=== PATIENT | female | born 1960 | race Caucasian/White ===

== ENCOUNTER 2019-03-12 22:11 | Emergency (ER) | payer BC ==
[~2019-03-12] VITALS: Ht 175.3 cm; Wt 124.7 kg
[~2019-03-12 22:11] MED LIST: ASPI81EC PO; CETI10 PO; CYCL10 PO; DOCSEN PO; DULO60 PO; HYDACE5 PO; LISI20 PO; MULVITB&C PO; MULVITMINF PO; OMEP20ER PO; TRAZ50 PO
[2019-03-12 22:55] LABS: BASOPHILS ABSOLUTE AUTO 0.06 K/mm3 (0.00-0.23); BASOPHILS PERCENT AUTO 1 % (0-2); EOSINOPHILS ABSOLUTE AUTO 0.01 K/mm3 (0.00-0.68); EOSINOPHILS PERCENT AUTO 0 % (0-6); Hematocrit 42.1 % (33.0-51.0); Hemoglobin 13.7 g/dL (11.5-16.0); IMMATURE GRAN ABSOLUTE AUTO 0.07 K/mm3 (0.00-0.10); IMMATURE GRAN PERCENT AUTO 1 % (0-1); LYMPHOCYTES ABSOLUTE AUTO 4.05 K/mm3 (0.84-5.20); LYMPHOCYTES PERCENT AUTO 42 % (21-46); MONOCYTES ABSOLUTE AUTO 0.72 K/mm3 (0.16-1.47); MONOCYTES PERCENT AUTO 8 % (4-13); Mean Corpuscular HGB 27.5 pg (26.0-34.0); Mean Corpuscular HGB Conc 32.5 g/dL (31.5-36.5); Mean Corpuscular Volume 84 fL (80-100); NEUTROPHILS ABSOLUTE AUTO 4.68 K/mm3 (1.96-9.15); NEUTROPHILS PERCENT AUTO 49 % (41-73); Platelet Count 180 K/mm3 (150-400); RDW Coefficient Variation 13.6 % (11.7-14.2); RDW Standard Deviation 41.9 fL (35.1-46.3); Red Blood Cell Count 4.99 M/mm3 (3.80-5.20); White Blood Cell Count 9.59 K/mm3 (4.00-11.30)
[2019-03-12 23:02] LABS: Alanine Aminotransfer (ALT/SGP 34 U/L (12-78); Albumin, Blood 3.7 g/dL (3.4-5.0); Albumin/Globulin Ratio 1.1 (0.8-1.8); Alk Phos 89 U/L (50-136); Anion Gap 8 mmol/L (6-16); Aspartate Aminotrans (AST/SGOT 26 U/L (12-37); Bilirubin, Total 0.4 mg/dL (0.1-1.0); Blood Urea Nitrogen 19 mg/dL (8-24); Bun/Creatinine Ratio 19.3 (12.0-20.0); CO2, Blood 28 mmol/L (21-32); Chloride, Blood 106 mmol/L (98-108); Creatinine, Blood 0.99 mg/dL (0.40-1.00); Globulin, Blood 3.4 g/dL (2.2-4.0); Glomerular Filtration Rate >60 (60-); Glucose, Blood 81 mg/dL (70-99); Potassium, Blood 3.7 mmol/L (3.5-5.5); Sodium, Blood 142 mmol/L (136-145); Total Protein, Blood 7.1 g/dL (6.4-8.2); Troponin I <0.015 ng/mL (0.000-0.040)
[2019-03-13] MEDS ORDERED: Hydrocodone-Ap1 EA20 PO (04:07)
[2019-03-13] MEDS ORDERED: VENL150ER PO (04:08)
[2019-03-13] MEDS ORDERED: CONEST.9 PO (04:08)
[2019-03-13] MEDS ORDERED: PREG75 PO (04:08)
[2019-03-13] MEDS ORDERED: NEBI10 PO (04:08)
== END 2019-03-13 00:45 | disposition home or self-care (01) ==
LOC: ER 22:11
PROVIDERS: Emergency Medicine
DX: I49.1 Atrial premature depolarization (principal); I10 Essential (primary) hypertension; Z88.5 Allergy status to narcotic agent; Z79.82 Long term (current) use of aspirin; Z79.891 Long term (current) use of opiate analgesic; Z79.899 Other long term (current) drug therapy
CPT/HCPCS: 71046; 80053; 84484; 85025; 93005; 93010; 99285-25

== ENCOUNTER → 2020-03-11 | Outpatient (CLI) | payer BC ==
[~2020-03-11] MED LIST changes: +CONEST.9 PO; +Hydrocodone-Ap1 EA20 PO; +NEBI10 PO; +PREG75 PO; +VENL150ER PO
== END ==
LOC: LAB SHORT 17:35 → LAB EV 17:35
DX: N39.0 Urinary tract infection, site not specified (principal)
CPT/HCPCS: 87077; 87086; 87186

== ENCOUNTER → 2023-01-05 | Outpatient (CLI) | payer BC | LOC: LAB SHORT 11:55 → LAB 11:55 | DX: M19.042 Primary osteoarthritis, left hand (principal); M19.041 Primary osteoarthritis, right hand | CPT/HCPCS: 85651; 86140 ==